=== PATIENT | female | born 1975 | race Two or more races ===

== ENCOUNTER 2025-02-17 16:44 | Emergency (ER) | payer BC, SELFPAY ==
[2025-02-17 17:17] VITALS: BP 128/83; PULSE 113; RESP 19; TEMP 36.4; O2SAT 99; BMI 29.0
--- NOTE | 2025-02-17 17:18 | PD.EDRME ---
Rapid Medical Screening Exam E Arrival date/time: 02/17/25 16:44 50-year-old female with no known medical history presents to the emergency room with a chief complaint of weakness, vomiting, diarrhea after running a 10K marathon earlier this morning I have greeted and performed a focused initial assessment of this patient. A comprehensive ED assessment and evaluation of the patient, analysis of all test results, and completion of the medical decision making process will be conducted by additional ED providers. Chief Complaint: Nausea/Vomiting/Diarrhea Time Seen by Provider: 02/17/25 17:10 Vital signs reviewed by provider: Yes Exam: Soft nontender abdomen Clear bilateral lung sounds no wheezing or abnormal breath sounds Strong and regular rhythm S1 and S2 noted Clinical Impression: Rhabdomyelosis/dehydration
[2025-02-17 17:45] LABS: Collection Type, Urine Clean Catch
[2025-02-17 17:50] LABS: Basophils # (Auto) 0.0 Thou/mm3 (0.0-0.2); Basophils % (Auto) 0 % (0-2.5); Eosinophils # (Auto) 0.0 Thou/mm3 (0.0-0.5); Eosinophils % (Auto) 0 % (0-10); Hematocrit 40.5 % (36.0-46.0); Hemoglobin 13.6 g/dL (12.0-16.0); Immature Granulocytes Auto 0.03 Thou/mm3 (0.00-0.00); Lymphocytes # (Auto) 0.6 Thou/mm3 (1.0-4.8); Lymphocytes % (Auto) 5 % (10-50); Mean Corpuscular HGB Conc 33.6 g/dl (31.0-37.0); Mean Corpuscular Hemoglobin 30.0 pg (25.0-35.0); Mean Corpuscular Volume 89 fL (80-100); Monocytes # (Auto) 0.4 Thou/mm3 (0.0-0.8); Monocytes % (Auto) 3 % (0-12); Neutrophils # (Auto) 10.4 Thou/mm3 (1.8-7.7); Neutrophils % (Auto) 91 % (37-80); Nucleated Red Blood Cell # 0.00 Thou/mm3 (0.00-0.00); Nucleated Red Blood Cell % 0 /100 WBC (0); Platelet Count 247 Thou/mm3 (140-440); RDW Standard Deviation 46.3 fL (36.4-46.3); Red Blood Count 4.53 Miln/mm3 (4.00-5.20); White Blood Count 11.5 Thou/mm3 (3.6-11.0)
[2025-02-17 18:02] LABS: Bacteria,Urine Rare; Bilirubin,Urine Negative (Negative); Blood,Urine Trace (Negative); Color,Urine Yellow (Lt Yel-Yel); Culture Indicated,Urine Not Indicated; Glucose, Urine Negative (Negative); Ketones,Urine 2+ (Negative); Leukocyte Esterase,Urine Positive (Negative); Nitrite,Urine Negative (Negative); PH,Urine 6.5 (5.0-7.0); Protein,Urine 1+ (Neg - Trace); RBC,Urine 3 /hpf (0-3); Specific Gravity,Urine 1.029 (1.001-1.035); Squamous Epithelial Cell,Urine 2 /hpf (0-5); Urobilinogen,Urine Negative mg/dL (0.0-1.0); WBC,Urine 3 /hpf (0-5)
[2025-02-17 18:03] LABS: Clarity,Urine Hazy (Clear/Hazy)
[2025-02-17 18:07] LABS: Alanine Aminotransferase 19 U/L (10-49); Albumin, Serum 4.5 gm/dL (3.5-5.0); Albumin/Globulin Ratio 1.7 (1.2-2.2); Alkaline Phosphatase 77 U/L (46-116); Anion Gap 11 (7-16); Aspartate Amino Transferase 31 U/L (0-34); BUN/Creatinine Ratio 13 Ratio (12-20); Bilirubin,Total 1.0 mg/dL (0.3-1.2); Blood Urea Nitrogen 13 mg/dL (9-23); Calcium 8.9 mg/dL (8.3-10.6); Calcium (Corrected) 8.9 mg/dL (8.5-10.1); Carbon Dioxide 23.5 mMol/L (20.0-31.0); Chloride 107 mMol/L (98-107); Creatine Kinase 238 U/L (34-171); Creatinine (Component) 1.0 mg/dL (0.6-1.3); Estimated Creatinine Clearance 75.8 mL/min (>60); Globulin 2.7 gm/dL (2.3-3.5); Glucose 114 mg/dL (74-106); Osmolality,Calculated 282 (275-295); Potassium 3.9 mMol/L (3.4-5.1); Sodium 141 mMol/L (136-145); Total Protein 7.2 gm/dL (5.7-8.2); eGFR > 60 See Note
--- NOTE | 2025-02-17 18:50 | XR_ITS ---
Examination: CT abdomen and pelvis without contrast. Coronal 3-D reconstructions. Sagittal 2-D reconstructions. Date and time of exam: February 17, 2025, 1943 hours INDICATIONS: Nausea vomiting diarrhea beginning 11:00 a.m. this morning CTDI: vol (mGy): 10.5 DLP: (mGycm): 564 Technique: Axial images of the abdomen have been obtained, 3 mm slice thickness Intravenous contrast material has not been administered. Low dose protocols were performed. One or more of the following dose reduction techniques were used; automated exposure control, adjustment of the mA and/or KV according to patient size, use of iterative reconstruction technique. Findings: No visualized liver or splenic lesions Absent gallbladder No pancreatic or adrenal mass No renal or ureteral calculi, no hydronephrosis Aorta normal size 20 mm fat-containing umbilical hernia Normal appendix No bowel obstruction No diverticulitis Mildly fluid distended colon No pelvic mass Urinary bladder intact Advanced degenerative disc disease L4-L5, L5-S1 IMPRESSION: Mild diffuse colitis pattern
--- NOTE | 2025-02-17 18:52 | EDNOTE_ITS ---
ED General RME/HPI General Chief complaint: Nausea/Vomiting/Diarrhea Stated complaint: VOMITING AND DIARRHEA S/P 10K RUN Time Seen by Provider: 02/17/25 17:10 Arrival date/time: 02/17/25 16:44 CC: Nausea vomiting diarrhea HPI onset approximately 4 hours ago after running a 10K. Patient has no head no prior history of similar events. Denies fever chills or symptoms prior to the race. The race was held in [facility] with moderate temperatures. Patient continues to have active retching during the interview and assessment. Patient took Pepto-Bismol and OTC antidiarrheal medications in addition no to OTC nausea medication without relief. RME / HPI RME / HPI narrative: 02/17/25 16:44 50-year-old female with no known medical history presents to the emergency room with a chief complaint of weakness, vomiting, diarrhea after running a 10K marathon earlier this morning I have greeted and performed a focused initial assessment of this patient. A comprehensive ED assessment and evaluation of the patient, analysis of all test results, and completion of the medical decision making process will be conducted by additional ED providers. Exam: Soft nontender abdomen Clear bilateral lung sounds no wheezing or abnormal breath sounds Strong and regular rhythm S1 and S2 noted Impression: Rhabdomyelosis/dehydration Related Data Previous Rx's ?Medication ?Instructions ?Recorded ciprofloxacin HCl 500 mg tablet 500 mg PO BID #14 tabs 02/17/25 (Cipro) dicyclomine 20 mg tablet 20 mg PO BID #20 tabs metronidazole 500 mg tablet 500 mg PO BID 7 days #14 t abs 02/17/25 ondansetron 4 mg disintegrating 4 mg PO Q8H #14 tabs 1 04/19/24 tablet Allergies Allergy/AdvReac Type Severity Reaction Status Date / Time adhesive tape Allergy Severe Blister Verified 02/17/25 16:47 nut - unspecified Allergy Severe Wheezing Verified 02/17/25 16:47 pecan nut Allergy Severe Anaphylaxis Verified 02/17/25 16:47 Review of Systems Review of Systems Narrative Review of Systems: GEN: No fever, no chills, no weight loss EYES: No discharge, no visual changes, no pain HEENT: No ear pain, no congestion, no sore throat PULM: No shortness of breath, no cough, no congestion CV: No chest pain, no dyspnea on exertion, no palpitations GI: + nausea, + vomiting, + diarrhea, no pain, no constipation : No frequency, no urgency, no dysuria MUSC/SKEL: No joint pain, no back pain SKIN: No rash PSYCH: No hallucinations, no depression HEME/LYMPH: No easy bleeding or bruising tendencies NEURO: No weakness, no headache Past Medical History Past Medical History NEUROLOGIC: Negative Neurological Disorders or Seizures CARDIAC: Negative Cardiac Disorders, Congestive Heart Failure, Edema, Cellulitis or Varicose Veins RESPIRATORY: Positive Asthma ( A CHILD); Negative Chronic Obstructive Pulmonary Disease (COPD), Pneumonia, Tuberculosis or Sleep Apnea GASTROINTESTINAL: Positive Gall Bladder Disease (LAP [place]); Negative Gastrointestinal Disorders or Hepatitis GENITOURINARY: Negative Genitourinary Disorders or Renal Disease REPRODUCTIVE: Positive Previous Pregnancies (X2) MUSCULOSKELETAL: Positive Musculoskeletal Disorders ENDOCRINE: Negative Endocrine Disorders, Diabetes Mellitus Type 1 or Diabetes Mellitus Type 2 HEMATOLOGIC: Negative Blood Disorders OTHER HISTORY: Positive Chicken Pox, Measles and Mumps; Negative Hospitalization, Autoimmune Disease, Shingles, Falls, Blood Transfusions, Anesthesia Reactions, Chemotherapy, Radiation Therapy, MRSA or Cancer Family History FAMILY HISTORY: Positive Family Psychiatric Problems (SISTER,BROTHER (DEPRESSION,ANXIETY)), Family Cardiac Disorders (MOTHER,FATHER,BROTHER,SISTER (HTN)) and Family Surgery (FATHER,SISTER,MOTHER); Negative Family Respiratory Disorders, Family Gastrointestinal Problems, Family Cancer or Family Anesthesia Reaction Surgical History SURGICAL: Positive Nose Surgery (septoplasty) and Tubal Ligation; Negative Cardiac Surgery or Pacemaker Social History SMOKING STATUS: Never smoker ED Exam Narrative Physical exam: [General: In mild discomfort but not in any acute distress Head normocephalic HEENT: Within acceptable limits Neck is supple nontender Chest equal chest rise nontender to palpation Respiratory: Clear to auscultation no wheezes crackles or rubs CV: Rate rhythm is regular no murmurs rubs or clicks Abdomen soft, tenderness in the left upper quadrant left lower quadrant with reflexive retching, no reflexive guarding or rebound tenderness. Back: No CVA tenderness no spinous process tenderness from cervical spine thoracic and lumbar spine Skin: Intact no petechiae rash induration ulceration or crepitus Extremities: Moving all extremity against resistance cap refill less than 2 seconds neurosensory intact Neuro: Awake alert oriented x3 Glascow coma 15 no focal deficits] Course Course Course Narrative: Reassessment of this patient at 2009, the patient is nausea is resolved, the patient continues to have watery diarrhea. Note: Patient has not had any antibiotics in the last 6 months. Quality Measures none Orders Category Date Time Status Saline [Insert IV] NOW Care 02/17/25 18:[address] abdomen pelvis wo con Stat Exams 02/17/25 18:50 Completed CBC Stat Lab 02/17/25 17:20 Completed CK [Creatine Kinase] Stat Lab 02/17/25 17:20 Completed CMP [Comprehensive Metabolic Panel] Stat Lab 02/17/25 17:20 Completed HCG Qualitative,Urine Stat Lab 02/17/25 19:42 Ordered UA, C/S IF [Urinalysis, C/S if Indicated] Stat Lab 02/17/25 17:40 Completed Ondansetron Inj [Zofran Inj] Med 02/17/25 18:50 Discontinued 4 mg IVP X1 ONE Ringers Lactated 1000 ml [Lactated Ringers] 1,000 ml Med 02/17/25 18:51 Discontinued IV 999 mls/hr Ringers Lactated 1000 ml [Lactated Ringers] 1,000 ml Med 02/17/25 18:51 Discontinued IV 999 mls/hr Vital Signs Vital signs: Vital Signs Temperature 97.5 F 02/17/25 17:17 Pulse Rate 113 H 02/17/25 17:17 Respiratory Rate 19 02/17/25 17:17 Blood Pressure 128/83 02/17/25 17:17 Pulse Oximetry (%) 99 02/17/25 17:17 Oxygen Delivery Method Room Air 02/17/25 17:17 Discharge Plan Plan Patient Disposition: HOME (Self Care) Patient condition on transfer: Stable Prescriptions/Referrals Prescriptions/Med Rec: New ciprofloxacin HCl [Cipro] 500 mg tablet 500 mg PO BID Qty: 14 0RF metronidazole 500 mg tablet 500 mg PO BID 7 Days Qty: 14 0RF dicyclomine 20 mg tablet 20 mg PO BID Qty: 20 0RF ondansetron 4 mg tablet,disintegrating 4 mg PO Q8H Qty: 14 0RF Referrals: Minh Wolf MD [Physician, Family Practice] - In 1 week Problem List Clinical Impression: Colitis, Nausea & vomiting, Diarrhea Patient/Caregiver Discharge Instructions Other Activity Instructions:: Rest drink plenty of fluids bland foods advance as tolerated. Take all the medications as prescribed if symptoms worsen in spite of the medications return the emergency room for evaluation. Education Materials: Understanding Colitis Print Language: Citizen [place] Stand Alone Forms: Janeth Award Info., Patient Portal Info Letter, Work/School Release FATUMA/MICHELLE Supervising Physician SOREN Supervising Physician: Jero Steen ENP MDM Clinical Information Provided by: patient and spouse Medical Records reviewed [facility] Meds/Rx considered, not ordered None Labs/Rad/Tests considered, not ordered None Chronic Illness/Social Conditions which may negatively complicate care or outcome(s)-explain: None or not applicable EKG EKG not done Labs Labs: interpreted by me Lab(s) Interpretation(s): CBC shows no significant leukocytosis anemia thrombocytopenia CMP shows no significant electrolyte imbalances renal impairment transaminitis or T. bili elevation Creatinine kinase at 238. Urine shows 1+ protein 2+ ketones. Leukocyte Estrace positive rare bacteria. Imaging Imaging interpretation: interpreted by me Imaging Interpretation(s): CT shows a mild colitis pattern. Medication Administration(s) Medication Administration History Discontinued Medications Lactated Ringer's (Lactated Ringers) 1,000 mls @ 999 mls/hr IV .Q1H1M ONE Stop: 02/17/25 19:51 Last Admin: 02/17/25 19:35 Dose: 999 mls/hr Documented By: BD Lactated Ringer's (Lactated Ringers) 1,000 mls @ 999 mls/hr IV .Q1H1M ONE Stop: 02/17/25 19:51 Last Admin: 02/17/25 19:36 Dose: 999 mls/hr Documented By: BD Ondansetron HCl (Ondansetron Inj 2 Mg/Ml Inj 2 Ml) 4 mg IVP X1 ONE; Protocol Stop: 02/17/25 18:51 Last Admin: 02/17/25 19:35 Dose: 4 mg Documented By: BD
[2025-02-17] MEDS: ONDANSETRON INJ 2 MG/ML INJ 2 ML 4 MG IVP (19:35)
[2025-02-17] MEDS: RINGERS LACTATED 1000 ML 1,000 ML 999 ML IV ×2 (19:35→19:36)
== END 2025-02-17 20:50 | disposition home or self-care (01) ==
PROVIDERS: Nurse Practitioner Family; Emergency Provider Emergency Medicine; PCP Internal Medicine
DX: K52.9 Noninfective gastroenteritis and colitis, unspecified (principal)
CPT/HCPCS: 36415; 74176; 80053; 81001; 81025; 82550; 85025; 96361; 96374; 99283; J2405; J7120